=== PATIENT | female | born 1990 | race Two or more races ===

== ENCOUNTER 2023-03-03 22:28 | Inpatient (IN) | payer OTHER ==
[~2023-03-03] VITALS: Ht 162.6 cm; Wt 96.2 kg
[2023-03-04 00:30] VITALS: BP 147/92; TEMP 98.1; O2SAT 99
--- NOTE | 2023-03-04 00:30 | NUR ---
ADMISSION 32 y/o female Alert Oriented x4. Direct admit from [facility]. [place] to room, unit, staff. Skin assessment done, no pressure injury. Instructed patient to use call if any assistance/needs, verbalized understanding.
[2023-03-04] MEDS ORDERED: MORPHINE SULFATE INJ 2 MG/ML DISP.SYRIN IV PRN (01:00)
[2023-03-04] MEDS ORDERED: ONDANSETRON HCL/PF 4 MG/2 ML VIAL IVP PRN (01:00)
[2023-03-04] MEDS ORDERED: Z GUARD REMEDY 4 OZ OINT TP PRN (01:00)
[2023-03-04] MEDS: IV NS 0.9% 1,000 ML IV PRN ×3 (01:27→23:00)
--- NOTE | 2023-03-04 01:31 | NUR ---
ABDOMEN PAIN Patient ambulated to the bathroom, voided urine. Complaints of abdomen pain 03/13, denies N/V. Given IV Morphine, will reassess.
[2023-03-04 06:07] LABS: BASOPHILS % (AUTO) 0.2 % (0.0-2.0); EOSINOPHILS % (AUTO) 0.7 % (0.0-6.0); HEMATOCRIT 37 % (33-45); HEMOGLOBIN 12.6 g/dL (11.5-14.8); LYMPHOCYTES # (AUTO) 1.1 K/uL (0.8-4.8); LYMPHOCYTES % (AUTO) 9.9 % (20.0-44.0); MEAN CORPUSCULAR HGB CONC 34 g/dl (31.0-36.0); MEAN CORPUSCULAR VOLUME 100 fL (82-100); MONOCYTES # (AUTO) 0.9 K/uL (0.1-1.30); MONOCYTES % (AUTO) 7.9 % (2.0-12.0); NEUTROPHILS # (AUTO) 9.3 K/uL (1.8-8.9); NEUTROPHILS % (AUTO) 81.3 % (43.0-81.0); PLATELET COUNT (AUTO) 219 K/uL (150-450); RED BLOOD CELL COUNT(AUTO) 3.74 MIL/uL (4.0-5.2); WHITE BLOOD COUNT (AUTO) 11.4 K/uL (4.3-11.0)
[2023-03-04 06:31] LABS: ALBUMIN 2.9 g/dL (3.4-5.0); BILIRUBIN,TOTAL 1.3 mg/dL (0.2-1.0); CALCIUM, SERUM 7.8 mg/dL (8.5-10.1); CREATININE 0.6 mg/dL (0.6-1.3); TOTAL PROTEIN, SERUM 6.7 g/dL (6.4-8.2)
[2023-03-04 07:23] LABS: POTASSIUM 2.7 mmol/L (3.5-5.1)
--- NOTE | 2023-03-04 07:25 | NUR ---
END OF SHIFT REPORT Patient in bed, awake. LFA IV peripheral line intact. IVF continuous. Abd pain improved with IV morphine. NPO. Denies nausea, no episode of vomiting. Ambulate to the bathroom, no BM, voided urine. Lab reported Critical lab value, Potassium 2.7 Care endorsed to LANCE Palmer and to follow up critical value with seng MOORE.
[2023-03-04 07:42] VITALS: BP 128/84; TEMP 98.2; O2SAT 97
--- NOTE | 2023-03-04 07:53 | NUR ---
Opening Report Patient in bed, awake, A/O x 4 ambulatory, voided urine. LFA IV C/D/I, IVF continuous. Patient is NPO, denies nausea, no episode of vomiting at this time. . Lab reported Critical lab value, Potassium 2.7 reported to abrahan Luna who admitted the patient, charge nurse made aware
[2023-03-04] MEDS: PANTOPRAZOLE 40 MG VIAL IV SCH (08:50)
[2023-03-04] MEDS: POTASSIUM CL. PREMIX PERIPHER. 50 ML IV SCH ×4 (12:17→15:15)
[2023-03-04 17:04] VITALS: BP 140/84; TEMP 98.1; O2SAT 97
[2023-03-04] MEDS: CEFTRIAXONE 1 G in IV D5W 50 ML IV SCH (18:29)
--- NOTE | 2023-03-04 19:14 | NUR ---
Closing note Patient in bed, awake, A/O x 4 watching TV, ambulatory, voided urine. LFA IV C/D/I, IVF continuous. denies nausea, no episode of vomiting at this time. All medications given as ordered, All needs met. Safety protocol in placed, endorsed to incoming shift nurse for cain.
--- NOTE | 2023-03-04 19:15 | NUR ---
MS RN NOTES RECEIVED LYING ON BED,A/O X4,WATCHING TV PROGRAM,BREATHING REGULAR,NOT IN ANY FORM OF DISTRESS.DENIES PAIN DISCOMFORTS AT THE MOMENT,IVF INFUSING WELL ON LEFT AC SALINE LOCK,AMBULATE WITH STEADY GAIT.CALL LIGHT IN REACH,NEEDS ANTICIPATED.
[2023-03-04 20:00] VITALS: BP 136/88; TEMP 98.6; O2SAT 97
[2023-03-04 20:05] VITALS: BP 136/88; TEMP 98.6; O2SAT 97
--- NOTE | 2023-03-05 01:00 | NUR ---
MS RN NOTES SLEEPING THIS TIME,KEPT WARM AND COMFORTABLE.
[2023-03-05 05:47] LABS: BASOPHILS % (AUTO) 0.2 % (0.0-2.0); HEMATOCRIT 35 % (33-45); HEMOGLOBIN 12.2 g/dL (11.5-14.8); LYMPHOCYTES # (AUTO) 0.8 K/uL (0.8-4.8); LYMPHOCYTES % (AUTO) 7.1 % (20.0-44.0); MEAN CORPUSCULAR HGB CONC 35 g/dl (31.0-36.0); MEAN CORPUSCULAR VOLUME 99 fL (82-100); MONOCYTES % (AUTO) 9.1 % (2.0-12.0); NEUTROPHILS # (AUTO) 9.3 K/uL (1.8-8.9); NEUTROPHILS % (AUTO) 82.6 % (43.0-81.0); PLATELET COUNT (AUTO) 216 K/uL (150-450); RED BLOOD CELL COUNT(AUTO) 3.56 MIL/uL (4.0-5.2); WHITE BLOOD COUNT (AUTO) 11.2 K/uL (4.3-11.0)
[2023-03-05 06:00] LABS: CALCIUM, SERUM 7.4 mg/dL (8.5-10.1); CREATININE 0.4 mg/dL (0.6-1.3); MAGNESIUM 1.5 mg/dL (1.8-2.4)
--- NOTE | 2023-03-05 06:00 | NUR ---
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
[2023-03-05 06:02] LABS: POTASSIUM 2.8 mmol/L (3.5-5.1)
--- NOTE | 2023-03-05 06:20 | NUR ---
MS RN NOTES HOSPITALIST JANES STORM MADE AWARE OF POTASSIUM LEVEL,WITH NEW ORDERS NOTED AND CARRIED OUT.
[2023-03-05] MEDS ORDERED: Magnesium 1GM/D5W 100ML PREMIX PIGGYBACK IV ONE (06:30)
[2023-03-05] MEDS ORDERED: POTASSIUM CHLORIDE 20 MEQ TAB.PRT.SR PO ONE (06:30)
[2023-03-05] MEDS: IV NS 0.9% 1,000 ML IV PRN (06:57)
--- NOTE | 2023-03-05 07:18 | NUR ---
MS RN NOTES FAIRLY RESTED AT NIGHT.AMBULATE WITH STEADY GAIT,IVF INFUSING WELL ON LEFT AC SALINE LOCK.K LEVEL 2.8,GIVEN 80MEQ KCL PO ORDERED,PLUS 20MEQ IV TO BE ADMINISTER BY DAY SHIFT NURSE. MAGNESIUM LEVEL 1.5,STARTED ON MAGNESIUM 1GM X 2BAG ORDERED.IN NO ACUTE DISTRESS,NO COMPLAINTS OF ABDOMINAL PAIN.CALL LIGHT IN REACH,NEEDS ATTENDED.
--- NOTE | 2023-03-05 07:19 | NUR ---
MS RN OPENING NOTES: RECEIVED PT IN BED AWAKE.ALERT AND ORIENTED X 4 AND ABLE TO MAKE NEEDS KNOWN. NO SOB OR CARDIAC DISTRESS NOTED. PT DENIES ANY PAIN/DISCOMFORT AT THIS TIME. IV ACCESS ON LEFT AC GAUGE PATENT INTACT AND INFUSING KCL IV. PER MARKETING TRAFFIC COORDINATOR NURSE SHE SCANNED 1 BAG IV KCL AND HANDED ME 2 MORE BAGS. SAFETY MEASURES MAINTAINED. BED LOCKED AND IN LOWEST POSITION, SIDE RAILS UP X 2 CALL LIGHT IN EASY REACH AND WILL MONITOR PT ACCORDINGLY.
[2023-03-05] MEDS: POTASSIUM CHLORIDE 10 MEQ/50 ML PREMIXED IVPB FOR PERIPHERAL LINE IV SCH ×2 (07:30→09:43)
[2023-03-05 08:00] VITALS: BP 132/87; TEMP 98.6; O2SAT 97
[2023-03-05] MEDS: PANTOPRAZOLE 40 MG VIAL IV SCH (08:27)
[2023-03-05] MEDS: Magnesium 1GM/D5W 100ML PREMIX 100 ML IV SCH ×4 (09:52→13:20)
[2023-03-05] MEDS ORDERED: CIPR250T4 PO (11:25)
[2023-03-05] MEDS ORDERED: K PHOS NEUTRAL 250 MG TABLET PO ONE (13:00)
[2023-03-05] MEDS: CEFTRIAXONE 1 G in IV D5W 50 ML IV SCH (14:23)
--- NOTE | 2023-03-05 14:24 | NUR ---
PT WILL BE DC TODAY AND DR DE DIOS OKAYED TO GIVE THE IV ATB [id number] EARLIER BEFORE PT GO HOME.
--- NOTE | 2023-03-05 15:54 | NUR ---
PROCESS ENGINEERING INTERN NOTES: PATIENT DISCHARGED HOME ACCOMPANIED BY [facility]. PT ALERT AND ORIENTED X 4 AND ABLE TO MAKE NEEDS KNOWN. NO SOB OR CARDIAC DISTRESS NOTED. PT DID NOT COMPLAIN ANY PAIN AT THIS TIME. DISCHARGE PACKET AND INSTRUCTIONS GIVEN TO PT AND VERBALIZED UNDERSTANDING. REMOVED IV ACCESS AND IDENTIFICATION BAND. PT LEFT THE UNIT STABLE AND AMBULATORY.
[2023-03-06] MEDS ORDERED: PANTOPRAZOLE 40 MG TABLET.DR PO SCH (09:00)
== END 2023-03-05 16:08 | disposition home or self-care (01) | DRG 282 ==
LOC: MED 03-04 00:06
PROVIDERS: ADMIT Nurse Practitioner Acute Care; ATTEND Nurse Practitioner Acute Care
DX: K85.90 Acute pancreatitis without necrosis or infection, unspecified (principal); R16.0 Hepatomegaly, not elsewhere classified; K76.0 Fatty (change of) liver, not elsewhere classified; E87.1 Hypo-osmolality and hyponatremia; F41.9 Anxiety disorder, unspecified; E86.0 Dehydration; E87.6 Hypokalemia; Z87.59 Personal history of other complications of pregnancy, childbirth and the puerperium; D72.829 Elevated white blood cell count, unspecified
CPT/HCPCS: 36415; 80048-TC; 80053-TC; 83690-TC; 83735-TC; 84100-TC; 84703-TC; 85025-TC; 87081-TC; A4223; C9113; G0378; J0696; J2270; J3475; J3480; J7030; J7050; J7060